=== PATIENT | female | born 1990 | race American Indian/Alaskan Native ===

== ENCOUNTER 2017-03-13 12:32 | Emergency (ER) | payer MEDICAID ==
[~2017-03-13] VITALS: Ht 149.9 cm; Wt 55.5 kg
[~2017-03-13 12:32] MED LIST: NAPR-260 PO
[2017-03-13 12:35] VITALS: Ht 149.9 cm; Wt 55.5 kg
[2017-03-13] MEDS ORDERED: KETOROLAC 30 MG INJ IM STA (13:21)
[2017-03-13] MEDS ORDERED: TRAM50TA2 PO (13:53)
[2017-03-13] MEDS ORDERED: NAPR-260 PO (13:53)
[2017-03-13] MEDS ORDERED: CYCL-319 PO (13:54)
[2017-03-13] MEDS ORDERED: ACET500C5 PO (13:55)
--- NOTE | 2017-03-13 14:37 | ERD ---
ER Documentation Chief Complaint Date/Time DATE: 03/13/17 TIME: 14:34 Chief Complaint 7/10 lower back pain x 2 days HPI Is a 26-year-old female who presents to the emergency department today complaining of back pain for the past couple of days. Patient states that she was moving furniture when she felt pain in her back. Denies any loss of bowel or bladder control, dysuria, fevers or chills ROS All systems reviewed and are negative except as per history of present illness. Medications Home Meds Active Scripts Acetaminophen* (Tylophen*) 500 Mg Capsule, 1 CAP PO Q6H Y for PAIN AND OR ELEVATED TEMP, #30 CAP Prov:NUSRAT CRAIG PA-C 03/13/17 Cyclobenzaprine Hcl* (Cyclobenzaprine Hcl*) 10 Mg Tablet, 10 MG PO QHS, #7 TAB Prov:NUSRAT CRAIG PA-C 03/13/17 Naproxen* (Naprosyn*) 500 Mg Tablet, 500 MG PO BID Y for PAIN AND/OR INFLAMMATION, #30 TAB Prov:NUSRAT CRAIG PA-C 03/13/17 Tramadol HCl (Tramadol HCl) 50 Mg Tablet, 50 MG PO Q4 Y for PAIN, #20 TAB Prov:NUSRAT CRAIG PA-C 03/13/17 Naproxen* (Naprosyn*) 500 Mg Tablet, 500 MG PO BID Y for PAIN AND/OR INFLAMMATION, #30 TAB Prov:LAURA LAUREANO PA-C 07/11/16 Allergies Allergies: Coded Allergies: No Known Allergy (Unverified , 07/11/16) PMhx/Soc Medical and Surgical Hx: pt denies Medical Hx, pt denies Surgical Hx History of Surgery: No Anesthesia Reaction: No Hx Neurological Disorder: No Hx Respiratory Disorders: No Hx Cardiac Disorders: No Hx Psychiatric Problems: No Hx Miscellaneous Medical Probl: No Hx Alcohol Use: No Hx Substance Use: No Hx Tobacco Use: No Physical Exam Vitals Vital Signs Date Time Temp Pulse Resp B/P Pulse Ox O2 Delivery O2 Flow Rate FiO2 03/13/17 12:35 97.8 87 18 116/67 99 Physical Exam Const: No acute distress Head: Atraumatic Eyes: Normal Conjunctiva ENT: Normal External Ears, Nose and Mouth. Neck: Full range of motion..~ No meningismus. Resp: Clear to auscultation bilaterally Cardio: Regular rate and rhythm, no murmurs Skin: No petechiae or rashes Back: Lumbar spine with midline tenderness and bilateral paraspinal tenderness. Full active range of motion with pain. Pulses 2+. Distal neurovascularly intact per negative straight leg raise. Ext: No cyanosis, or edema Neur: Awake and alert Psych: Normal Mood and Affect Results 24 hrs Current Medications Medications (Trade) Dose Ordered Sig/Jf Route PRN Reason Start Time Stop Time Status Last Admin Dose Admin Ketorolac Tromethamine (Toradol) 30 mg ONCE STAT IM 03/13/17 13:21 03/13/17 13:22 DC 03/13/17 13:39 Procedures/MDM This is a 26-year-old female who presents to the emergency department today complaining of back pain for the past 2 days. Patient did not have have a fall and she is only had pain since yesterday do not feel that she requires imaging at this time. Patient has no dysuria this is secondary to lifting furniture and I do not feel that she requires a UA at this time. Low suspicion for urinary tract infection, pyelonephritis or nephrolithiasis.. Low suspicion for acute fracture or dislocation. Patient is afebrile and otherwise well-appearing. They have no loss of bowel or bladder control. Low suspicion for cauda equina or abscess. Symptoms at this time is consistent with strain versus sprain versus muscle spasm. Patient was given Toradol here in the emergency department and pain improved. Patient will be given a prescription for short course of tramadol, Naprosyn and Flexeril for home. At this time the patient is stable for discharge and outpatient management. Patient should follow up with their PCP in the next 1-2 days. They may return to the emergency department sooner for any persistent or worsening of symptoms. Patient understood and agreed with the plan. Departure Diagnosis: Primary Impression: Injury of back Encounter type: initial encounter Qualified Code: S39.92XA - Injury of back , initial encounter Condition: Fair Patient Instructions: Back Sprain/Strain [facility]errals: [facility] Usted se cho hecho un examen mdico de control que le indica que no est en james condicin que requiera tratamiento urgente en el Departamento de Emergencia. Un estudio ms profundo y el tratamiento de portillo condicin pueden esperar sin ningn riesgo hasta que usted sea atendida/o en el consultorio de portillo mdico o james cl corina. Es responsabilidad suya arreglar james raegan para el seguimiento del tab. MANEJO DE CONDICIONES NO URGENTES EN EL FUTURO 1) Si usted tiene un mdico de atencin primaria: Usted debera llamar a portillo mdico de atencin primaria antes de venir al departamento de emergencia. Despus de las horas de consultorio, portillo doctor o portillo asociado/a est disponible por telfono. El mdico o enfermero de nuha en el servicio telefnico puede asesorarle por chel medio para atender el problema, o tab contrario se puede programar james raegan. 2) Si usted no tiene un mdico de atencin primaria: Llame al mdico o clnica de referencia que aparece abajo mookie las horas de consultorio para hacer james raegan para que le vean. CLINICAS: [place] [phone] [facility] [phone] [facility]. [facility] [phone] [facility]. [place] [phone] [facility] [place] [phone] [facility]. [phone] [address] Additional Instructions: Llame al doctor MAANA y anne marie james RAEGAN PARA DENTRO DE 1-2 LANGLEY.Dgale a la secretaria que nosotros le instruimos hacer esta raegan.Avise o llame si portillo condicin se empeora antes de la raegan. Regresa aqui si peor o no mejor. Take tramadol for severe pain otherwise take Naprosyn or Tylenol or Motrin Take Flexeril for muscle spasms. Take only at night and do not travel taking this medication. Apply ice and heat intermittently NUSRAT CRAIG PA-C Mar 13, 2017 14:36
== END 2017-03-13 14:15 | disposition home or self-care (01) ==
LOC: FTE 12:32
DX: S39.92XA Unspecified injury of lower back, initial encounter (principal); X50.9XXA Other and unspecified overexertion or strenuous movements or postures, initial encounter; Y92.9 Unspecified place or not applicable
CPT/HCPCS: 96372; J1885

== ENCOUNTER 2017-07-26 21:51 | Emergency (ER) | END 2017-07-27 02:58 | disposition home or self-care (01) ==

== ENCOUNTER 2017-08-28 21:05 | Emergency (ER) | END 2017-08-28 21:18 | disposition home or self-care (01) ==

== ENCOUNTER 2018-09-02 11:10 | Emergency (ER) | payer MEDICAID ==
[~2018-09-02] VITALS: Ht 157.5 cm; Wt 52.8 kg
[~2018-09-02 11:10] MED LIST changes: +ACET325T33 PO; +ACET500C5 PO; +CEPH-443 PO; +CETI10CA PO; +CYCL10TA7 PO; +FLUT9.9S NASAL; +NAPH15DR OP; -NAPR-260 PO; +NAPR-985 PO; +ONDA8TAB14 PO; +TRAM50TA2 PO
[2018-09-02 11:16] VITALS: BP 107/55; PULSE 54; RESP 20; Ht 157.5 cm; Wt 52.8 kg
[2018-09-02] MEDS ORDERED: LORA5TAB4 PO (12:21)
[2018-09-02] MEDS ORDERED: KETO5DRO71 OP (12:21)
--- NOTE | 2018-09-02 12:55 | ERD ---
ER Documentation Chief Complaint Chief Complaint Complains of a rash/ allergic reaction since yesterday HPI 27-year-old female presenting with watery eyes runny nose and scratchy throat. She denies any fevers. She has not taken medications today. She states that her eyes are itchy but denies any purulent discharge is not close to her eyes when she wakes up in the morning. Denies medical problems. NKDA. Surgical history denies. Social history denies ROS All systems reviewed and are negative except as per history of present illness. Medications Home Meds Active Scripts Loratadine* (Claritin*) 5 Mg Tab.rapdis, 5 MG PO DAILY, #30 TAB Prov:LAURA LAUREANO PA-C 09/02/18 Ketotifen Fumarate (ZADITOR) 5 Ml Drops, 5 ML OP BID, #1 BOTTLE Prov:LAURA LAUREANO PA-C 09/02/18 Fluticasone Propionate (Flonase Allergy Relief) 9.9 Ml De[place].susp, 1 SPRAY NASAL BID, #1 BOTTLE TO EACH NOSTRIL Prov:MADYSON PRETTY NP 08/28/17 Cetirizine Hcl* (Zyrtec*) 10 Mg Capsule, 10 MG PO DAILY, #30 TAB.CHEW Prov:MADYSON PRETTY NP 08/28/17 Naphazoline Hcl/Phenir Mal (Naphcon-A Eye Drops) 15 Ml Drops, 2 DROP OP Q6, #1 BOTTLE Prov:MADYSON PRETTY NP 08/28/17 Cephalexin* (Keflex*) 500 Mg Capsule, 500 MG PO TID for 7 Days, CAP Prov:ALBARO POLLOCK PA-C 07/27/17 Acetaminophen* (Tylenol*) 325 Mg Tablet, 2 TAB PO Q4 PRN for PAIN AND OR ELEVATED TEMP, #30 TAB Prov:ALBARO POLLOCK PA-C 07/27/17 Ondansetron (Ondansetron Odt) 8 Mg Tab.rapdis, 8 MG PO Q6H PRN for NAUSEA AND/OR VOMITING, #10 TAB Prov:ALBARO POLLOCK PA-C 07/27/17 Acetaminophen* (Tylophen*) 500 Mg Capsule, 1 CAP PO Q6H PRN for PAIN AND OR ELEVATED TEMP, #30 CAP Prov:NUSRAT CRAIGC 03/13/17 Cyclobenzaprine Hcl* (Cyclobenzaprine Hcl*) 10 Mg Tablet, 10 MG PO QHS, #7 TAB Prov:NUSRAT CRAIG-C 03/13/17 Naproxen* (Naprosyn*) 500 Mg Tablet, 500 MG PO BID PRN for PAIN AND/OR INFLAMMATION, #30 TAB Prov:NUSRAT CRAIG-C 03/13/17 Tramadol HCl (Tramadol HCl) 50 Mg Tablet, 50 MG PO Q4 PRN for PAIN, #20 TAB Prov:NUSRAT CRAIGC 03/13/17 Naproxen* (Naprosyn*) 500 Mg Tablet, 500 MG PO BID PRN for PAIN AND/OR INFLAMMATION, #30 TAB Prov:LAURA LAUREANO PA-C 07/11/16 Allergies Allergies: Coded Allergies: No Known Allergy (Unverified , 09/02/18) PMhx/Soc History of Surgery: No Anesthesia Reaction: No Hx Neurological Disorder: No Hx Respiratory Disorders: No Hx Cardiac Disorders: No Hx Psychiatric Problems: No Hx Miscellaneous Medical Probl: No Hx Alcohol Use: No Hx Substance Use: No Hx Tobacco Use: No Smoking Status: Never smoker FmHx Family History: No diabetes, No coronary disease, No other Physical Exam Vitals Vital Signs Date Temp Pulse Resp B/P (MAP) Pulse Ox O2 O2 Flow FiO2 Time Delivery Rate 09/02/18 97.6 54 20 107/55 100 11:16 (72) Physical Exam GENERAL: The patient is well-appearing, well-nourished, in no acute distress HEENT: Atraumatic. Conjunctivae are pink. Pupils equal, round, and reactive to light. There is no scleral icterus. Tympanic membranes clear bilaterally. Oropharynx clear. NECK: C-spine is soft and supple. There is no meningismus. There is no cervical lymphadenopathy. CHEST: Clear to auscultation bilaterally. There are no rales, wheezes or rhonchi. HEART: Regular rate and rhythm. No murmurs, clicks, rubs or gallops. Procedures/MDM MDM: 27-year-old female presenting with itchy eyes and nasal congestion. I have low suspicion for bacterial HEENT infection. I do not feel antibiotics are indicated. I have low suspicion for bacterial conjunctivitis. Patient likely has allergic rhinitis and conjunctivitis. I will treat with supportive medications. Patient's vitals are stable and exam is non-concerning. Patient is discharged with supportive medications and told to follow-up with primary care within 1-2 days for close evaluation. Patient is told if symptoms change or worsen to immediately return to the ER. All questions answered at discharge Departure Diagnosis: Primary Impression: Seasonal allergies Condition: Stable Patient Instructions: Seasonal Allergy Referrals: [facility] YOU HAVE RECEIVED A MEDICAL SCREENING EXAM AND THE RESULTS INDICATE THAT YOU DO NOT HAVE A CONDITION THAT REQUIRES URGENT TREATMENT IN THE EMERGENCY DEPARTMENT. FURTHER EVALUATION AND TREATMENT OF YOUR CONDITION CAN WAIT UNTIL YOU ARE SEEN IN YOUR DOCTORS OFFICE WITHIN THE NEXT 1-2 DAYS. IT IS YOUR RESPONSIBILITY TO MAKE AN APPOINTMENT FOR FOLOW-UP CARE. IF YOU HAVE A PRIMARY DOCTOR --you should call your primary doctor and schedule an appointment IF YOU DO NOT HAVE A PRIMARY DOCTOR YOU CAN CALL OUR PHYSICIAN REFERRAL HOTLINE AT IF YOU CAN NOT AFFORD TO SEE A PHYSICIAN YOU CAN CHOSE FROM THE FOLLOWING [facility] [address] [facility]. [facility] [address] [facility]. [facility] [address] [facility] [facility] [address] [facility] [facility] [phone] [facility]. [facility]. [address] Additional Instructions: FOLLOW UP WITH YOUR PRIMARY CARE PHYSICIAN TOMORROW.Return to this facility if you are not improving as expected. LAURA LAUREANO PA-C Sep 02, 2018 12:55
== END 2018-09-02 12:38 | disposition home or self-care (01) ==
LOC: FTE 11:10
DX: J30.2 Other seasonal allergic rhinitis (principal)
CPT/HCPCS: 99282

== ENCOUNTER 2018-12-22 11:04 | Emergency (ER) | payer MEDICAID ==
[~2018-12-22] VITALS: Wt 61.0 kg
[~2018-12-22 11:04] MED LIST changes: +KETO5DRO71 OP; +LORA5TAB4 PO
[2018-12-22 11:08] VITALS: BP 115/68; PULSE 62; RESP 18
[2018-12-22] MEDS ORDERED: HYDR-4011 PO (11:53)
[2018-12-22] MEDS ORDERED: AMOX1TAB10 PO (11:53)
[2018-12-22] MEDS ORDERED: HYDROCODONE/APAP (5/325) TAB PO ONE (12:00)
--- NOTE | 2018-12-22 13:33 | ERD ---
ER Documentation Chief Complaint Chief Complaint TOOTH ACHE HPI 28-year-old female presents to the ED complaining of sudden onset left upper tooth pain since a few hours prior to arrival. Patient denies any trauma. She denies any fevers or chills. Denies any jaw pain, drooling, facial pain, or facial swelling. She has plans to see her dentist sometime this week. No other complaints. No shortness of breath, wheezing, difficulty breathing. ROS All systems reviewed and are negative except as per history of present illness. Medications Home Meds Active Scripts Amoxicillin/Potassium Clav (Amox-Clav 875-125 mg Tablet) 875-125 mg Tab, 1 TAB PO BID for 7 Days, #14 TAB Prov:CHERIEIGRIKIANMARCOC 12/22/18 Hydrocodone/Acetaminophen ([place] 5-325 Tablet) 1 Each Tablet, 1 TAB PO Q6H PRN for PAIN, #7 TAB Prov:CHERIEIGRMARCO SANCHEZ PA-C 12/22/18 Loratadine* (Claritin*) 5 Mg Tab.rapdis, 5 MG PO DAILY, #30 TAB Prov:LAURA LAUREANO PA-C 09/02/18 Ketotifen Fumarate (ZADITOR) 5 Ml Drops, 5 ML OP BID, #1 BOTTLE Prov:LAURA LAUREANO PA-C 09/02/18 Fluticasone Propionate (Flonase Allergy Relief) 9.9 Ml Sel[place].susp, 1 SPRAY NASAL BID, #1 BOTTLE TO EACH NOSTRIL Prov:MADYSON PRETTY NP 08/28/17 Cetirizine Hcl* (Zyrtec*) 10 Mg Capsule, 10 MG PO DAILY, #30 TAB.CHEW Prov:MADYSON PRETTY NP 08/28/17 Naphazoline Hcl/Phenir Mal (Naphcon-A Eye Drops) 15 Ml Drops, 2 DROP OP Q6, #1 BOTTLE Prov:MADYSON PRETTY NP 08/28/17 Cephalexin* (Keflex*) 500 Mg Capsule, 500 MG PO TID for 7 Days, CAP Prov:ALBARO POLLOCK PA-C 07/27/17 Acetaminophen* (Tylenol*) 325 Mg Tablet, 2 TAB PO Q4 PRN for PAIN AND OR ELEVATED TEMP, #30 TAB Prov:ALBARO POLLOCK PA-C 07/27/17 Ondansetron (Ondansetron Odt) 8 Mg Tab.rapdis, 8 MG PO Q6H PRN for NAUSEA AND/OR VOMITING, #10 TAB Prov:ALBARO POLLOCKC 07/27/17 Acetaminophen* (Tylophen*) 500 Mg Capsule, 1 CAP PO Q6H PRN for PAIN AND OR ELEVATED TEMP, #30 CAP Prov:NUSRAT CRAIG-C 03/13/17 Cyclobenzaprine Hcl* (Cyclobenzaprine Hcl*) 10 Mg Tablet, 10 MG PO QHS, #7 TAB Prov:NUSRAT CRAIGC 03/13/17 Naproxen* (Naprosyn*) 500 Mg Tablet, 500 MG PO BID PRN for PAIN AND/OR INFLAMMATION, #30 TAB Prov:NUSRAT CRAIGC 03/13/17 Tramadol HCl (Tramadol HCl) 50 Mg Tablet, 50 MG PO Q4 PRN for PAIN, #20 TAB Prov:NUSRAT CRAIGC 03/13/17 Naproxen* (Naprosyn*) 500 Mg Tablet, 500 MG PO BID PRN for PAIN AND/OR INFLAMMATION, #30 TAB Prov:LAURA LAUREANOC 07/11/16 Allergies Allergies: Coded Allergies: No Known Allergy (Unverified , 09/02/18) PMhx/Soc History of Surgery: No Anesthesia Reaction: No Hx Neurological Disorder: No Hx Respiratory Disorders: No Hx Cardiac Disorders: No Hx Psychiatric Problems: No Hx Miscellaneous Medical Probl: No Hx Alcohol Use: No Hx Substance Use: No Hx Tobacco Use: No Physical Exam Vitals Vital Signs Date Temp Pulse Resp B/P (MAP) Pulse Ox O2 O2 Flow FiO2 Time Delivery Rate 12/22/18 97.7 62 18 115/68 99 11:08 (84) Physical Exam Const: No acute distress Head: Atraumatic Eyes: Normal Conjunctiva. EOMI. PERRL. ENT: Normal External Ears, Nose and Mouth. + Tenderness to percussion of tooth #15. No periapical abscess seen. No facial swelling. Submandibular space is clear. No trismus. Neck: Full range of motion. No meningismus. Resp: Clear to auscultation bilaterally Cardio: Regular rate and rhythm, no murmurs Neur: Awake and alert Psych: Normal Mood and Affect Results 24 hrs Current Medications Medications Dose Sig/Jf Start Time Status Last (Trade) Ordered Route PRN Stop Time Admin Dose Reason Admin 1 tab ONCE ONCE 12/22/18 DC 12/22/18 Acetaminophen PO 12:00 12:01 / 12/22/18 12:01 Hydrocodone Bitart ([place] (5/325)) Procedures/MDM 28-year-old female presents with atraumatic dental pain. She has no evidence of abscess, Jt's angina, osteomyelitis or deep space tissue infection. She does not need any advanced imaging or workup at this time. Her vital signs are stable here and she can be managed with outpatient dental follow up tomorrow. [facility] shows no evidence of narcotic abuse/use and prescribed a short course of [place] as well. Strict return precautions were discussed. PRESCRIPTIONS: [place], Augmentin SPECIALIST FOLLOW UP RECOMMENDED: Dentist Patient has been advised to follow up with primary care in 1-2 days. Departure Diagnosis: Primary Impression: Toothache Condition: Stable Patient Instructions: Dental Pain Referrals: [facility] walk in clinic) Additional Instructions: You must see the dentist tomorrow. Return here for new or worsening symptoms. MARCO CHILDS PA-C December 22, 2018 13:33
== END 2018-12-22 12:22 | disposition home or self-care (01) ==
LOC: FTE 11:04
DX: K08.89 Other specified disorders of teeth and supporting structures (principal)
CPT/HCPCS: Z7502; Z7610; 99283

== ENCOUNTER 2019-04-07 06:26 | Emergency (ER) | payer SELFPAY ==
[~2019-04-07] VITALS: Ht 152.4 cm; Wt 52.4 kg
[~2019-04-07 06:26] MED LIST changes: +AMOX1TAB10 PO; +CIPR500T4 PO; +HYDR-4011 PO; +IBUP-1542 PO; +IBUP800T48 PO; +METO10TA92 PO; +METR-122 PO; +ONDA4TAB14 PO; +Work Note
[2019-04-07 06:29] VITALS: Ht 152.4 cm; Wt 52.4 kg
[2019-04-07] MEDS ORDERED: ONDANSETRON 4 MG INJ IV STA ×2 (06:40→08:04)
[2019-04-07] MEDS ORDERED: morphine 2 MG INJ IV STA (06:40)
[2019-04-07] MEDS ORDERED: SOD CHLORIDE 0.9% 1,000 ML IV STA (06:40)
[2019-04-07] MEDS ORDERED: morphine 4 MG/ML VIAL IV STA (08:04)
[2019-04-07 09:14] VITALS: BP 104/56; PULSE 81; RESP 18
== END 2019-04-07 09:15 | disposition home or self-care (01) ==
LOC: FTE 06:26
DX: R10.9 Unspecified abdominal pain (principal); R11.2 Nausea with vomiting, unspecified
CPT/HCPCS: 36415; 74176; 76830; 76856; 80053; 81001; 81025; 83690; 85025; 96361; 96374; 96375; 96376; 99285; J2270; J2405; J7030; 81003

== ENCOUNTER 2019-06-01 10:25 | Emergency (ER) | payer MEDICAID ==
[~2019-06-01] VITALS: Ht 152.4 cm; Wt 47.8 kg
[~2019-06-01 10:25] MED LIST changes: +ACET325S PO; -ACET325T33 PO; -ACET500C5 PO; -CETI10CA PO; -CYCL10TA7 PO; +FAMO-96 PO; -FLUT9.9S NASAL; -HYDR-4011 PO; -IBUP-1542 PO; -IBUP800T48 PO; -KETO5DRO71 OP; -LORA5TAB4 PO; -METO10TA92 PO; -METR-122 PO; -NAPH15DR OP; -NAPR-985 PO; -ONDA4TAB14 PO; -ONDA8TAB14 PO; +SACC250C PO; -TRAM50TA2 PO; -Work Note
[2019-06-01 10:59] VITALS: Ht 152.4 cm; Wt 47.8 kg
[2019-06-01] MEDS ORDERED: FAMOTIDINE 20 MG INJ IV STA (12:24)
[2019-06-01] MEDS ORDERED: SOD CHLORIDE 0.9% 1,000 ML IV STA (12:24)
[2019-06-01] MEDS ORDERED: KETOROLAC 15 MG INJ IV STA (12:24)
[2019-06-01] MEDS ORDERED: SOD CHLORIDE 0.9% 100 ML ONE ×2 (12:57→16:35)
[2019-06-01] MEDS ORDERED: IOHEXOL 300MG/ML 150 ML BTL ONE (12:57)
[2019-06-01] MEDS ORDERED: IOHEXOL 100 ML ONE (16:35)
[2019-06-01 17:47] VITALS: BP 99/57; PULSE 70; RESP 18
== END 2019-06-01 17:53 | disposition home or self-care (01) ==
LOC: FTE 10:25
DX: N83.202 Unspecified ovarian cyst, left side (principal); N39.0 Urinary tract infection, site not specified; R10.2 Pelvic and perineal pain
CPT/HCPCS: 36415; 71045; 71275; 74177; 76705; 76830; 76856; 80053; 81001; 81025; 83690; 85025; 85378; 93005; 96374; 96375; J1885; J7030; Q9967; Z7502; Z7610